=== PATIENT | female | born 1960 | race Caucasian/White ===

== ENCOUNTER 2018-10-28 11:24 | Emergency (ER) | payer MEDICAID ==
[~2018-10-28] VITALS: Ht 170.2 cm; Wt 90.7 kg
[2018-10-28 11:38] VITALS: BP 174/106
[2018-10-28] MEDS ORDERED: LORazepam 0.5 MG TAB PO ONE (12:00)
== END 2018-10-28 15:03 | disposition left against medical advice (07) ==
LOC: EDBD 11:24 → ER 11:28
DX: F32.9 Major depressive disorder, single episode, unspecified (principal); F41.9 Anxiety disorder, unspecified; F25.9 Schizoaffective disorder, unspecified; Z90.710 Acquired absence of both cervix and uterus; Z86.39 Personal history of other endocrine, nutritional and metabolic disease
CPT/HCPCS: 71045; 93005

== ENCOUNTER 2022-07-20 15:14 | Emergency (ER) | payer OTHER, MEDICAID ==
[~2022-07-20] VITALS: Ht 160 cm; Wt 89.9 kg
[2022-07-20 16:25] VITALS: BP 143/73
[2022-07-20] MEDS ORDERED: ACETAMINOPHEN 500 MG TAB PO ONE (17:15)
[2022-07-20 18:31] LABS: Basophils # (auto) 0.1 10 ^3/uL (0-0.2); Basophils % (auto) 0.6 % (0.0-2.0); Eosinophils # (auto) 0.3 10 ^3/uL (0-0.8); Hematocrit 36.6 % (36.0-46.0); Hemoglobin 12.1 g/dL (12.2-16.2); Lymphocytes # (auto) 1.9 10 ^3/uL (0.4-5.4); Mean Corpuscular Hemoglobin 30.4 pg (28.0-32.0); Monocytes % (auto) 9.8 % (0.0-12.0); Neutrophils # (auto) 6.7 10 ^3/uL (1.6-8.6); Neutrophils % (auto) 67.6 % (37.0-80.0); Nucleated Red Blood Cells % 0.1 %; Red Blood Cells 3.98 10^6/uL (4.0-5.20); Red Cell Distribution Width 14.8 % (11.8-14.3); White Blood Cell 9.9 10^3/uL (4.4-10.8)
[2022-07-20 18:49] LABS: Albumin 3.7 g/dL (3.4-5.0); BUN/Creatinine Ratio 12.8 (10.0-20.0)
[2022-07-20 18:52] LABS: Bilirubin, Total 0.4 mg/dL (0.2-1.0)
== END 2022-07-20 19:39 | disposition left against medical advice (07) ==
LOC: ER 15:14
DX: S92.352A Displaced fracture of fifth metatarsal bone, left foot, initial encounter for closed fracture (principal); R51.9 Headache, unspecified; Z90.710 Acquired absence of both cervix and uterus; Z88.2 Allergy status to sulfonamides; W18.39XA Other fall on same level, initial encounter; Y93.89 Activity, other specified; Y92.89 Other specified places as the place of occurrence of the external cause; Y99.8 Other external cause status
CPT/HCPCS: 36415; 70450; 73630; 80053; 85025

== ENCOUNTER 2023-01-30 16:43 | Emergency (ER) | payer OTHER, MEDICAID ==
[~2023-01-30] VITALS: Ht 162.6 cm; Wt 89.2 kg
[2023-01-30 17:10] VITALS: BP 146/86; PULSE 85; RESP 18; TEMP 97.8; O2SAT 96
== END 2023-01-30 18:14 | disposition left against medical advice (07) ==
LOC: ER 16:43
DX: S00.83XA Contusion of other part of head, initial encounter (principal); S50.11XA Contusion of right forearm, initial encounter; S00.12XA Contusion of left eyelid and periocular area, initial encounter; S00.11XA Contusion of right eyelid and periocular area, initial encounter; Z53.21 Procedure and treatment not carried out due to patient leaving prior to being seen by health care provider; W06.XXXA Fall from bed, initial encounter; Y93.89 Activity, other specified; Y92.89 Other specified places as the place of occurrence of the external cause; Y99.8 Other external cause status